=== PATIENT | female | born 1995 | race Caucasian/White ===

== ENCOUNTER 2021-01-01 10:58 | Inpatient (IN) | payer OTHER ==
[~2021-01-01] VITALS: Ht 172.7 cm; Wt 93.2 kg
[2021-01-01] MEDS ORDERED: PREN1TAB62 PO (11:54)
[2021-01-01] MEDS ORDERED: LACTATED RINGERS 1,000 ML IV SCH (12:00)
[2021-01-01] MEDS ORDERED: FENTANYL PF 100 MCG/2ML IVPush PRN (12:00)
[2021-01-01] MEDS ORDERED: TERBUTALINE 1 MG/ML, 1ML SQ PRN (12:00)
[2021-01-01] MEDS ORDERED: D5%-LACTATED RINGERS 1,000 ML IV SCH (12:00)
[2021-01-01] MEDS ORDERED: OXYTOCIN 30U/ 0.9% NaCL 500ML 500 ML IV PRN (12:00)
[2021-01-01] MEDS ORDERED: OXYTOCIN 30U/ 0.9% NaCL 500ML 500 ML IV ONE (12:00)
[2021-01-01] MEDS ORDERED: ONDANSETRON 2MG/ML, 2ML IVPush PRN (12:00)
[2021-01-01] MEDS ORDERED: TERBUTALINE 1 MG/ML, 1ML IVPush PRN (12:00)
[2021-01-01 12:18] VITALS: BP 118/63
[2021-01-01 12:22] LABS: BASOPHILS % (AUTO) 0 % (0-1); EOSINOPHILS % (AUTO) 0 % (1-7); LYMPHOCYTES % (AUTO) 15 % (22-44); MEAN PLATELET VOLUME 8.5 fL (7.4-10.4); MONOCYTES % (AUTO) 5 % (2-9); NEUTROPHILS % (AUTO) 79 % (42-75); PLATELET COUNT 157 x10^3/uL (130-400); RED BLOOD COUNT 3.81 x10^6/uL (3.82-5.3); RED CELL DISTRIBUTION WIDTH 13.8 % (9.6-15.2)
[2021-01-01 12:24] LABS: MD NO
[2021-01-01] MEDS ORDERED: FENTANYL/BUPIV./NS/PF 250 ML EPIDCONT ONE (14:24)
[2021-01-01] MEDS ORDERED: BUPIVACAINE 0.25% ONE (14:24)
[2021-01-01] MEDS: LACTATED RINGERS 1,000 ML IV SCH ×2 (15:00→23:00)
[2021-01-01] MEDS ORDERED: EPHEDRINE 50 MG/ML, 1ML IVPush PRN (15:00)
[2021-01-01] MEDS ORDERED: FENTANYL/BUPIV./NS/PF 250 ML EPIDCONT SCH (15:00)
[2021-01-01] MEDS ORDERED: LACTATED RINGERS 1,000 ML IVBOLUS PRN (15:00)
[2021-01-01] MEDS ORDERED: NEWBORN KIT ONE (17:45)
[2021-01-01] MEDS ORDERED: HYDROcodone/APAP 5/325 TABLET PO PRN (23:00)
[2021-01-01] MEDS ORDERED: MISOPROSTOL 200 MCG TABLET PR PRN (23:00)
[2021-01-01] MEDS ORDERED: OXYTOCIN 30U/ 0.9% NaCL 500ML 500 ML IV SCH (23:00)
[2021-01-01] MEDS ORDERED: OXYcodone/APAP 5/325MG TABLET PO PRN (23:00)
[2021-01-01] MEDS ORDERED: BISACODYL 10 MG SUPP PR PRN (23:00)
[2021-01-01] MEDS ORDERED: RHOGAM FROM BLOOD BANK 1 NOTE EA IM/IV ONE (23:00)
[2021-01-01] MEDS ORDERED: ONDANSETRON 2MG/ML, 2ML IV PRN (23:00)
[2021-01-01] MEDS ORDERED: ACETAMINOPHEN 325 MG TABLET PO PRN (23:00)
[2021-01-01] MEDS ORDERED: DOCUSATE 100 MG CAPSULE PO PRN (23:00)
[2021-01-01] MEDS: IBUPROFEN 800 MG TABLET PO PRN (23:34)
[2021-01-02 01:20] VITALS: BP 101/64
[2021-01-02 03:50] VITALS: BP 118/75
[2021-01-02] MEDS ORDERED: MEASLES,MUMPS&RUBELLA VACC/PF 0.5 ML SQ-VACC ONE (06:00)
[2021-01-02 06:18] LABS: BASOPHILS % (AUTO) 0 % (0-1); EOSINOPHILS % (AUTO) 0 % (1-7); LYMPHOCYTES % (AUTO) 14 % (22-44); MD NO; MEAN CORPUSCULAR HEMOGLOBIN 33.3 pg (27.0-34.8); MEAN CORPUSCULAR HGB CONC 34.6 g/dL (32.4-35.8); MEAN PLATELET VOLUME 8.4 fL (7.4-10.4); MONOCYTES % (AUTO) 6 % (2-9); NEUTROPHILS % (AUTO) 80 % (42-75); PLATELET COUNT 146 x10^3/uL (130-400); RED BLOOD COUNT 3.74 x10^6/uL (3.82-5.3)
[2021-01-02 07:20] VITALS: BP 105/70
[2021-01-02] MEDS: IBUPROFEN 800 MG TABLET PO PRN (08:03)
[2021-01-02] MEDS ORDERED: PRENATAL VIT/IRON/FA 1 EACH TABLET PO SCH (09:00)
[2021-01-02 12:15] VITALS: BP 117/72
[2021-01-02] MEDS ORDERED: IBUP-1222 PO (15:19)
[2021-01-02] MEDS ORDERED: DOCU-131 PO (15:19)
[2021-01-02 16:31] VITALS: BP 110/71
[2021-01-02 19:27] VITALS: BP 112/74
== END 2021-01-02 20:30 | disposition home or self-care (01) | DRG 807 ==
LOC: LDIP 10:58 → 2NW 01-02 00:55
PROVIDERS: ADMIT Obstetrics & Gynecology; ATTEND Obstetrics & Gynecology
PROC: 10E0XZZ Delivery of Products of Conception, External Approach (ICD-10-PCS; principal; 2021-01-01)
PROC: 0HQ9XZZ Repair Perineum Skin, External Approach (ICD-10-PCS; 2021-01-01)
PROC: 3E0R3BZ Introduction of Anesthetic Agent into Spinal Canal, Percutaneous Approach (ICD-10-PCS; 2021-01-01)
PROC: 00HU33Z Insertion of Infusion Device into Spinal Canal, Percutaneous Approach (ICD-10-PCS; 2021-01-01)
DX: O70.0 First degree perineal laceration during delivery (principal); Z37.0 Single live birth; Z3A.39 39 weeks gestation of pregnancy; Z80.3 Family history of malignant neoplasm of breast
CPT/HCPCS: 36415; J7121; 85025; 86592; 86850; 86900; 87635; G0378; J2590; J7120